=== PATIENT | female | born 1980 | race African-American/Black ===

== ENCOUNTER 2019-03-14 21:06 | Emergency (ER) | payer SELFPAY ==
[~2019-03-14] VITALS: Ht 172.7 cm; Wt 91.0 kg
[2019-03-14 21:15] VITALS: BP 145/94
--- NOTE | 2019-03-14 22:11 | PHYS DOC ---
Past Medical History Past Medical History: No Pertinent History (KASIA CUMMINGS APRN) Past Surgical History: No Surgical History (KASIA CUMMINGS APRN) Smoking Status: Never Smoker Alcohol Use: Occasionally (KASIA CUMMINGS APRN) Attending Signature I have participated in the care of this patient and I have reviewed and agree with all pertinent clinical information above including history, exam, and recommendations. (OLGA MC MD) Adult General Chief Complaint Chief Complaint: Neck Pain HPI HPI Patient is a 38 year old female who presents with neck pain that has been ongoing since Tuesday. 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 She states that it was worse the next morning when she woke up and has continued since that time. The patient has been putting Ice on neck and taking Tylenol. She denies fever or any other symptoms. Complete ROS were reviewed and found to be within normal limits, except as documented in the HPI (KASIA CUMMINGS APRN) Physical Exam Physical Exam Constitutional: Well developed, well nourished, no acute distress, non-toxic appearance. [] HENT: Normocephalic, atraumatic, bilateral external ears normal, oropharynx moist, no oral exudates, nose normal. [] Eyes: PERRLA, EOMI, conjunctiva normal, no discharge. [] Neck: Normal range of motion, tenderness to muscle on bilateral sides of neck, supple, no stridor. [] Extremities: No tenderness, no cyanosis, no clubbing, ROM intact, no edema. [] Neurologic: Alert and oriented X 3, normal motor function, normal sensory function, no focal deficits noted. [] Psychologic: Affect normal, judgement normal, mood normal. [] (KASIA CUMMINGS APRN) Current Patient Data Vital Signs Vital Signs Date Time Temp Pulse Resp B/P (MAP) Pulse Ox O2 Delivery O2 Flow Rate FiO2 03/14/19 21:15 98.5 83 16 145/94 (111) 99 Room Air 98.5 (OLGA MC MD) EKG EKG [] (KASIA CUMMINGS APRN) Radiology/Procedures Radiology/Procedures [] (KASIA CUMMINGS APRN) Course & Med Decision Making Course & Med Decision Making Pertinent Labs and Imaging studies reviewed. (See chart for details) Discussed with patient that she likely has strained muscle. Discussed heat, and taking Tylenol and Ibuprofen for relief. A medical screening exam was performed on this patient and the patient does not appear to be having a medical emergency. Her symptoms are not of sufficient severity and within reasonable medical probability it is unlikely the absence of immediate medical attention would result in placing the health of the individual (or, with respect to a woman, the health of the woman or her unborn child) in serious jeopardy, serious impairment to bodily functions, or serious dysfunction of any bodily organ or part. If , the patient is not in labor (KASIA CUMMINGS APRN) Dragon Disclaimer Dragon Disclaimer This electronic medical record was generated, in whole or in part, using a voice recognition dictation system. (KASIA CUMMINGS APRN) Departure Departure Impression: Primary Impression: Musculoskeletal neck pain Additional Impression: Encounter for medical screening examination Disposition: HOME, SELF-CARE Condition: STABLE Referrals: NO PCP (PCP) Patient Instructions: Medical Screening Exam Additional Instructions: Thank you for visiting [facility]. We appreciate you trusting us with your care. If any additional problems come up don't hesitate to return to visit us. Please follow up with your primary care provider so they can plan additional care if needed and know about the problem that you had. If symptoms worsen come back to the Emergency Department. Any concerning symptoms that start such as chest pain, shortness of air, weakness or numbness on one side of the body, running high fevers or any other concerning symptoms return to the ER. Problem Qualifiers KASIA CUMMINGS APRN Mar 14, 2019 22:11 OLGA MC MD Mar 14, 2019 23:53
== END 2019-03-14 22:14 | disposition home or self-care (01) ==
LOC: ER 21:06
DX: M54.2 Cervicalgia (principal)
CPT/HCPCS: 99281